=== PATIENT | male | born 1970 | race Caucasian/White ===

== ENCOUNTER 2020-02-20 15:53 | Emergency (ER) | payer BC, OTHER ==
[~2020-02-20] VITALS: Ht 182 cm; Wt 98.0 kg
[2020-02-20 16:02] VITALS: BP 169/115
--- NOTE | 2020-02-20 16:10 | NUR ---
PT REPORTS HE DIDN'T TAKE ANY MEDS AT HOME BECAUSE HE DIDN'T WANT TO MASK HIS S/S. 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 THE VOLLEYBALL TEAM HAS BEEN IN QUARANTINE BUT HE HAS NOT. PT STARTED WITH A DOSHI BUT IT RESOLVED AND THEN HAD ONSET OF COUGH AND SORE THROAT YESTERDAY AND FEVER TODAY.
--- NOTE | 2020-02-20 16:14 | ED Cough/URI ---
General Chief Complaint: Fever-Adult/Adol Stated Complaint: FEVER;COVID EXPOSURE Nursing Triage Note: PT HERE WITH FEVER TODAY; STATES HE NOTICED YESTERDAY THAT HE HAD ONSET OF COUGH AND SORE THROAT. ONE OF HIS STUDENTS WAS DIAGNOSED WITH COVID AND HE LAST SAW HER ON THURSDAY OF LAST WK. Sepsis Screen: No Definite Risk Source: patient Exam Limitations: no limitations History of Present Illness Date Seen by Provider: Feb 20, 2020 Time Seen by Provider: 16:12 Initial Comments To ER with reports of sore throat and cough that began yesterday, headache that began 2 days ago and fever up to 101 today. 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 Timing/Duration: constant Severity/Quality: moderate Prior Episodes/Possible Cause: no prior episodes Associated Symptoms: shortness of breath, sore throat Allergies and Home Medications Allergies Coded Allergies: No Known Drug Allergies (Unverified , 02/20/20) Patient Home Medication List Home Medication List Reviewed: Yes Review of Systems Review of Systems Constitutional: see HPI EENTM: see HPI Respiratory: see HPI, cough Cardiovascular: no symptoms reported Genitourinary: no symptoms reported Musculoskeletal: no symptoms reported Skin: no symptoms reported Psychiatric/Neurological: No Symptoms Reported Hematologic/Lymphatic: No Symptoms Reported Immunological/Allergic: no symptoms reported Past Xwxwnkj-Yfitks-Dxjcun Hx Patient Social History Recent Foreign Travel: No Contact w/Someone Who Travel: No Recent Infectious Disease Expo: Yes Physical Exam Vital Signs - First Documented 02/20/20 16:02 Temp 38.2 Pulse 92 Resp 18 B/P (MAP) 169/115 (133) O2 Delivery Room Air Capillary Refill : Less Than 3 Seconds Height: '" Weight: lbs. oz. kg; 29.00 BMI Method: General Appearance: WD/WN, no apparent distress, other (97% room air) Eyes: Bilateral Eye Normal Inspection, Bilateral Eye PERRL, Bilateral Eye EOMI HEENT: PERRL/EOMI, normal ENT inspection Neck: non-tender, full range of motion Respiratory: normal breath sounds, no respiratory distress, no accessory muscle use Gastrointestinal: normal bowel sounds, non tender Neurologic/Psychiatric: alert, normal mood/affect, oriented x 3 Skin: normal color, warm/dry Progress/Results/Core Measures Suspected Sepsis Recent Fever Within 48 Hours: No Infection Criteria Present: None New/Unexplained Altered Menta: No Sepsis Screen: No Definite Risk SIRS Temperature: Pulse: 92 Respiratory Rate: 18 Blood Pressure 169 /115 Mean: 133 Results/Orders My Orders Orders - NOEL HUDSON APRN Covid 19 Inhouse Test (02/20/20 16:10) Coronavirus Sars-Cov-2 So 2018 (02/20/20 16:10) Ibuprofen Tablet (Motrin Tablet) (02/20/20 16:15) Vital Signs/I&O 02/20/20 16:02 Temp 38.2 Pulse 92 Resp 18 B/P (MAP) 169/115 (133) O2 Delivery Room Air Capillary Refill : Less Than 3 Seconds Blood Pressure Mean: 133 Departure Impression Primary Impression: Viral syndrome Disposition: 01 HOME, SELF-CARE Condition: Stable Departure-Patient Inst. Decision time for Depature: 16:18 Patient Instructions: Viral Syndrome (DC) Add. Discharge Instructions: Tylenol and ibuprofen as needed for pain or fever control 2. Stay home and quarantined until you have no fever for 72 hours with no use of Tylenol or Motrin and a negative COVID test. If your COVID test is positive then [facility] Department will be in touch with you to guide you further. All discharge instructions reviewed with patient and/or family. Voiced understanding. Work/School Note: Work Release Form Date Seen in the Emergency Department: Feb 20, 2020 Return to Work: Feb 20, 2020 Restrictions: Need Release from Doctor NOEL HUDSON APRN Feb 20, 2020 16:14
[2020-02-20] MEDS ORDERED: IBUPROFEN 800 MG (MOTRIN) TAB PO ONE (16:15)
== END 2020-02-20 16:30 | disposition home or self-care (01) ==
LOC: EDUNIT# 15:53 → ER 15:54
DX: U07.1 COVID-19 (principal)
CPT/HCPCS: 99283; U0002; 87635

== ENCOUNTER 2021-07-04 15:59 | Emergency (ER) | payer OTHER ==
[2021-07-04] MEDS ORDERED: RIVA15TA2 PO (16:31)
--- NOTE | 2021-07-04 16:33 | ED Lower Extremity ---
General Chief Complaint: Lower Extremity Stated Complaint: BLOOD CLOT Nursing Triage Note: PT AMB TO ER WITH CRUTCHES FROM [place] [facility] WITH C/O R FOOT BLOOD CLOT SEEN TODAY WHILE GETTING AN ULTRA SOUND. PT HAD SURGERY ON ACHELES 2 WEEKS AGO Source: patient Exam Limitations: no limitations History of Present Illness Date Seen by Provider: Jul 04, 2021 Time Seen by Provider: 16:27 Initial Comments To ER using crutches and a walking boot from the ultrasound department where he was found to have a positive right lower extremity venous ultrasound for DVT. He is about 2 weeks postop Achilles tendon repair and had some ongoing swelling during his appointment with Dr. ENGLISH today and was referred here for outpatient ultrasound. It was found to be positive so he was referred to the emergency room. He recently established with Dr. Segundo Pradhan, was prescribed blood pressure medication today but is not sure the name of it. Otherwise he does not see primary care and does not have any known medical problems. He denies any chest pain, has some mild exertional fatigue which he relates to being laid up with Achilles tendon rupture over the past few weeks. Onset: other Severity: moderate Pain/Injury Location: right leg Method of Injury: unknown Allergies and Home Medications Allergies Coded Allergies: No Known Drug Allergies (Unverified , 02/20/20) Patient Home Medication List Home Medication List Reviewed: Yes Rivaroxaban (Xarelto Tablet) 15 Mg Tablet, 15 MG PO BID Prescribed by: NOEL HUDSON on 07/04/21 1631 Review of Systems Constitutional: see HPI EENTM: see HPI Respiratory: no symptoms reported Cardiovascular: no symptoms reported Genitourinary: no symptoms reported Musculoskeletal: see HPI Skin: no symptoms reported Psychiatric/Neurological: No Symptoms Reported Past Dpixggy-Jzaacm-Iescbz Hx Patient Social History Tobacco Use?: No Substance use?: No Alcohol Use?: Yes Alcohol type: Beer Alcohol Frequency: Rarely Pt feels they are or have been: No Immunizations Up To Date Influenza Vaccine Up-to-Date: Yes; Up-to-Date First/Initial COVID19 Vaccinat: 2020 Second COVID19 Vaccination Myles: 2020 Seasonal Allergies Seasonal Allergies: Yes Past Medical History Respiratory: No Cardiac: No Neurological: No Genitourinary: No Gastrointestinal: Yes Hemorrhoids Musculoskeletal: No Endocrine: No HEENT: No Loss of Vision: Bilateral Cancer: No Psychosocial: No Integumentary: No Blood Disorders: No Physical Exam Vital Signs Vital Signs - First Documented 07/04/21 16:13 Temp 36.1 Pulse 95 Resp 18 B/P (MAP) 185/105 (131) Pulse Ox 97 O2 Delivery Room Air Capillary Refill : Less Than 3 Seconds Height, Weight, BMI Height: '" Weight: lbs. oz. kg; 29.00 BMI Method: General Appearance: WD/WN, no apparent distress HEENT: PERRL/EOMI, normal ENT inspection Respiratory: no respiratory distress, no accessory muscle use Hips: bilateral hip non-tender, bilateral hip normal inspection, bilateral hip normal range of motion Knees: bilateral knee non-tender, bilateral knee normal inspection, bilateral knee normal range of motion Ankles: bilateral ankle non-tender, bilateral ankle normal inspection, bilateral ankle normal range of motion Feet: bilateral foot non-tender, bilateral foot normal inspection, bilateral foot normal range of motion Neurologic/Psychiatric: alert, normal mood/affect, oriented x 3 Skin: normal color, warm/dry Toes and foot are warm and well-perfused. There is no ecchymosis or erythema. There is some swelling to the lower extremity. Progress/Results/Core Measures Results/Orders Lab Results Laboratory Tests Test 07/04/21 16:20 Range/Units White Blood Count 10.8 4.3-11.0 10^3/uL Red Blood Count 4.74 4.30-5.52 10^6/uL Hemoglobin 14.2 13.3-17.7 g/dL Hematocrit 42 40-54 % Mean Corpuscular Volume 88 80-99 fL Mean Corpuscular Hemoglobin 30 25-34 pg Mean Corpuscular Hemoglobin Concent 34 32-36 g/dL Red Cell Distribution Width 13.2 10.0-14.5 % Platelet Count 252 130-400 10^3/uL Mean Platelet Volume 9.6 9.0-12.2 fL Immature Granulocyte % (Auto) 0 % Neutrophils (%) (Auto) 71 42-75 % Lymphocytes (%) (Auto) 14 12-44 % Monocytes (%) (Auto) 12 0-12 % Eosinophils (%) (Auto) 3 0-10 % Basophils (%) (Auto) 0 0-10 % Neutrophils # (Auto) 7.7 1.8-7.8 X 10^3 Lymphocytes # (Auto) 1.5 1.0-4.0 X 10^3 Monocytes # (Auto) 1.3 H 0.0-1.0 X 10^3 Eosinophils # (Auto) 0.3 0.0-0.3 10^3/uL Basophils # (Auto) 0.0 0.0-0.1 10^3/uL Immature Granulocyte # (Auto) 0.0 0.0-0.1 10^3/uL Sodium Level 139 135-145 MMOL/L Potassium Level 3.8 3.6-5.0 MMOL/L Chloride Level 103 98-107 MMOL/L Carbon Dioxide Level 24 21-32 MMOL/L Anion Gap 12 5-14 MMOL/L Blood Urea Nitrogen 9 7-18 MG/DL Creatinine 0.71 0.60-1.30 MG/DL Estimat Glomerular Filtration Rate 111 BUN/Creatinine Ratio 13 Glucose Level 107 H 70-105 MG/DL Calcium Level 9.0 8.5-10.1 MG/DL My Orders Orders - NOEL HUDSON APRN Cbc With Automated Diff (07/04/21 16:14) Basic Metabolic Panel (07/04/21 16:14) Rivaroxaban Tablet (Xarelto Tablet) (07/04/21 17:15) Vital Signs/I&O 07/04/21 16:13 Temp 36.1 Pulse 95 Resp 18 B/P (MAP) 185/105 (131) Pulse Ox 97 O2 Delivery Room Air Blood Pressure Mean: 131 Departure Impression Primary Impression: Right leg DVT Disposition: HOME, SELF-CARE Condition: Stable Departure-Patient Inst. Decision time for Depature: 16:30 Referrals: NO,LOCAL PHYSICIAN (PCP/Family) Primary Care Physician Patient Instructions: Deep Vein Thrombosis (DVT) ED, Going Home on Blood Thinners Add. Discharge Instructions: 1. Follow any previous instructions by Dr. English. Take the blood thinner as directed. You will need this for a minimum of 3 months. You will take 1 tablet that is 15 mg twice a day for 21 days then a 20 mg tablet daily thereafter. I have written for the first 21 days prescription, I will let Dr. Pradhan write for the subsequent prescriptions. Return to ER for any worsening. All discharge instructions reviewed with patient and/or family. Voiced understanding. Scripts Rivaroxaban (XARELTO TABLET) 15 Mg Tablet 15 MG PO BID, #42 TAB Prov: NOEL HUDSON APRN 07/04/21 Copy Copies To 1: SEBASTIAN ENGLISH MD, PETER J APRN Jul 04, 2021 16:33
[2021-07-04 16:41] LABS: BASOPHILS % (AUTO) 0 % (0-10); EOSINOPHILS # (AUTO) 0.3 10^3/uL (0.0-0.3); EOSINOPHILS % (AUTO) 3 % (0-10); HEMATOCRIT 42 % (40-54); HEMOGLOBIN 14.2 g/dL (13.3-17.7); LYMPHOCYTES # (AUTO) 1.5 X 10^3 (1.0-4.0); LYMPHOCYTES % (AUTO) 14 % (12-44); MEAN CORPUSCULAR HEMOGLOBIN 30 pg (25-34); MEAN CORPUSCULAR HGB CONC 34 g/dL (32-36); MEAN CORPUSCULAR VOLUME 88 fL (80-99); MEAN PLATELET VOLUME 9.6 fL (9.0-12.2); MONOCYTES # (AUTO) 1.3 X 10^3 (0.0-1.0); MONOCYTES % (AUTO) 12 % (0-12); NEUTROPHILS # (AUTO) 7.7 X 10^3 (1.8-7.8); NEUTROPHILS % (AUTO) 71 % (42-75); PLATELET COUNT 252 10^3/uL (130-400); WHITE BLOOD COUNT 10.8 10^3/uL (4.3-11.0)
[2021-07-04 16:53] LABS: POTASSIUM 3.8 MMOL/L (3.6-5.0)
[2021-07-04 16:58] LABS: CREATININE SERUM 0.71 MG/DL (0.60-1.30)
[2021-07-04 17:15] VITALS: BP 170/100
[2021-07-04] MEDS ORDERED: RIVAROXABAN 15 MG TABLET (XARELTO) PO ONE (17:15)
== END 2021-07-04 17:15 | disposition home or self-care (01) ==
LOC: EDUNIT# 15:59 → ER 16:02
DX: I82.401 Acute embolism and thrombosis of unspecified deep veins of right lower extremity (principal); H54.3 Unqualified visual loss, both eyes; Z98.890 Other specified postprocedural states
CPT/HCPCS: 36415; 80048; 85025; 99283

== ENCOUNTER → 2021-07-04 | Outpatient (CLI) | payer BC, OTHER ==
[~2021-07-04] MED LIST: RIVA15TA2 PO
--- NOTE | 2021-07-04 16:41 | Diagnostic Imaging Report ---
PROCEDURE: US right lower extremity venous. TECHNIQUE: Multiple real-time grayscale images were obtained over the right lower extremity in various projections. Additional spectral analysis and color Doppler duplex images were also obtained. INDICATION: Calf swelling. FINDINGS: Duplex ultrasound of the venous system of the right leg shows thrombotic occlusion from the common femoral vein through the calf veins. IMPRESSION: Extensive deep vein thrombosis of the right leg. Results were called to provider at the time of exam. Dictated by: Dictated on workstation # [id number]
== END ==
LOC: RAD 15:00
PROVIDERS: ATTEND Orthopaedic Surgery
DX: I82.4Z1 Acute embolism and thrombosis of unspecified deep veins of right distal lower extremity (principal); M66.871 Spontaneous rupture of other tendons, right ankle and foot